=== PATIENT | male | born 2000 | race Caucasian/White ===

== ENCOUNTER 2019-04-27 12:03 | Emergency (ER) | payer OTHER ==
[~2019-04-27] VITALS: Ht 175.3 cm; Wt 78.6 kg
[2019-04-27 12:10] VITALS: Ht 175.3 cm; Wt 78.6 kg
[2019-04-27 12:57] LABS: CALCIUM 9.3 mg/dL (8.5-10.1); CARBON DIOXIDE 31.4 mmol/L (21-32); CHLORIDE SERUM 103 mmol/L (98-107); CREATININE SERUM 1.1 mg/dL (0.7-1.3); GFR1 > 60 mL/min; GLUCOSE SERUM 87 mg/dL (74-106); POTASSIUM SERUM 4.6 mmol/L (3.5-5.1); SODIUM SERUM 140 mmol/L (136-145)
[2019-04-27 13:01] LABS: ALBUMIN 4.3 g/dL (3.4-5.0); ALKALINE PHOSPHATASE 76 U/L (46-116); ALT/SGPT 27 U/L (16-63); AMYLASE 47 U/L (25-115); AST/SGOT 17 U/L (15-37); BILIRUBIN TOTAL 0.8 mg/dL (0.20-1.00); LIPASE 56 IU/L (73-393)
[2019-04-27 13:06] LABS: TOTAL PROTEIN, SERUM 8.5 g/dL (6.4-8.2)
[2019-04-27 13:08] LABS: BASOPHIL % 0.4 % (0-2); PLATELET COUNT 261 x10^3mcL (130-400); RED CELL DISTRIBUTION WIDTH 13.1 % (11.5-14.5)
[2019-04-27 14:11] VITALS: BP 110/54
== END 2019-04-27 14:11 | disposition home or self-care (01) ==
LOC: ED 12:03
DX: R10.32 Left lower quadrant pain (principal)
CPT/HCPCS: 36415